=== PATIENT | female | born 1960 | race Caucasian/White ===

== ENCOUNTER 2016-11-26 07:17 | Inpatient (IN) | payer MEDICAID ==
[~2016-11-26] VITALS: Ht 152.4 cm; Wt 83.1 kg
[~2016-11-26 07:17] MED LIST: AMOX1TAB64 PO; HYDR-3240 PO; INSU100I28 SQ; INSU100V5 SQ-INSULIN; METF500T4 PO; SULF1TAB3 PO
[2016-11-26] MEDS ORDERED: FLUT12HF2 INH (07:52)
[2016-11-26] MEDS ORDERED: SPIR50TA2 PO (07:53)
[2016-11-26] MEDS ORDERED: SODIUM CHLORIDE FLUSH 10ML SYR IVF ONE ×2 (08:00→11:30)
[2016-11-26 08:34] LABS: BLOOD UREA NITROGEN 16 mg/dL (7-18)
[2016-11-26 08:40] LABS: ASPARTATE AMINO TRANSFERASE 80 U/L (15-37)
[2016-11-26 10:16] LABS: PATH.CAST-FLAG NOT PRESENT; SPERM-FLAG NOT PRESENT; SRC-FLAG NOT PRESENT; XTAL-FLAG NOT PRESENT; YLC-FLAG NOT PRESENT
[2016-11-26] MEDS ORDERED: FUROSEMIDE 40 MG/4 ML IV ONE (12:30)
[2016-11-26] MEDS ORDERED: morphine SULFATE 10 MG/ML, 1ML IVPush PRN (14:30)
[2016-11-26] MEDS ORDERED: ONDANSETRON 2MG/ML, 2ML IVPush PRN (14:30)
[2016-11-26] MEDS ORDERED: GUAIFENESIN/DM 200-20MG, 10ML UDC PO PRN (14:30)
[2016-11-26] MEDS ORDERED: HYDROcodone/APAP 5/325 TABLET PO PRN (14:30)
[2016-11-26] MEDS ORDERED: NICOTINE 21 MG/24 HR PATCH.TD24 TD SCH (14:30)
[2016-11-26] MEDS ORDERED: LORazepam 2 MG/ML, 1ML IVPush PRN (14:30)
[2016-11-26] MEDS ORDERED: FUROSEMIDE 40 MG/4 ML ONE (14:51)
[2016-11-26] MEDS ORDERED: LIDOCAINE 1%, 20ML ONE (15:36)
[2016-11-26] MEDS ORDERED: SODIUM BICARBONATE 4.2%, 5ML ONE (15:36)
[2016-11-26] MEDS ORDERED: OMNIPAQUE 350 MG/ML, 100ML BOTTLE ONE (16:30)
[2016-11-26 16:32] VITALS: BP 147/86
[2016-11-26] MEDS: HEPARIN 5,000 UNITS/ML, 1ML SQ SCH (17:18)
[2016-11-26] MEDS: INSULIN ASPART 100 UNITS/ML, PEN SQ-INSULIN SCH ×2 (17:18→21:38)
[2016-11-26 19:49] VITALS: BP 151/84
[2016-11-26] MEDS: SODIUM CHLORIDE FLUSH 3ML SYRINGE IVF SCH (21:00)
[2016-11-26] MEDS: FAMOTIDINE 20 MG TABLET PO SCH (21:37)
[2016-11-26] MEDS: LACTULOSE 10 GM/15 ML UDC PO SCH (21:38)
[2016-11-27 01:37] VITALS: BP 147/78
[2016-11-27] MEDS: HEPARIN 5,000 UNITS/ML, 1ML SQ SCH (05:28)
[2016-11-27 05:42] LABS: ASPARTATE AMINO TRANSFERASE 66 U/L (15-37); BLOOD UREA NITROGEN 17 mg/dL (7-18)
[2016-11-27] MEDS: INSULIN ASPART 100 UNITS/ML, PEN SQ-INSULIN SCH ×2 (07:00→11:00)
[2016-11-27] MEDS ORDERED: SPIRONOLACTONE 100 MG TABLET PO SCH (09:00)
[2016-11-27] MEDS: FAMOTIDINE 20 MG TABLET PO SCH (09:00)
[2016-11-27] MEDS ORDERED: FLUTICASONE/VILANTEROL 100-25MCG/INH INH SCH (09:00)
[2016-11-27] MEDS: LACTULOSE 10 GM/15 ML UDC PO SCH (09:00)
[2016-11-27] MEDS: SODIUM CHLORIDE FLUSH 3ML SYRINGE IVF SCH (09:00)
[2016-11-27] MEDS ORDERED: FUROSEMIDE 40 MG/4 ML IV SCH ×2 (09:00→09:31)
[2016-11-27 09:51] VITALS: BP 159/90
[2016-11-27] MEDS ORDERED: ALBUMIN HUMAN 25% 100 ML IV SCH (10:00)
[2016-11-27 12:32] VITALS: BP 155/96
== END 2016-11-27 13:10 | disposition left against medical advice (07) | DRG 947 ==
LOC: ED 09:20 → EDIP 13:23 → 3NE 16:30
DX: R18.8 Other ascites (principal); E43 Unspecified severe protein-calorie malnutrition; K74.60 Unspecified cirrhosis of liver; B18.2 Chronic viral hepatitis C; E11.9 Type 2 diabetes mellitus without complications; E77.8 Other disorders of glycoprotein metabolism; F15.90 Other stimulant use, unspecified, uncomplicated; F17.210 Nicotine dependence, cigarettes, uncomplicated; J44.9 Chronic obstructive pulmonary disease, unspecified; Z80.49 Family history of malignant neoplasm of other genital organs; Z83.3 Family history of diabetes mellitus; Z79.84 Long term (current) use of oral hypoglycemic drugs; Z79.899 Other long term (current) drug therapy; Z84.89 Family history of other specified conditions; Z68.35 Body mass index [BMI] 35.0-35.9, adult
CPT/HCPCS: 36415; 49083; 71010; 74177; 76700; 80053; 81001; 82105; 82140; 82378; 82962; 83036; 83690; 83735; 83880; 84100; 84443; 85025; 85379; 85610; 86301; 87086; 93005; 93306; 93970; 96374; J1644; J1815; J1940; J3490; Q9967

== ENCOUNTER 2016-12-06 19:22 | Emergency (ER) | payer MEDICAID ==
[~2016-12-06] VITALS: Ht 152.4 cm; Wt 82.2 kg
[~2016-12-06 19:22] MED LIST changes: +FLUT12HF2 INH; +SPIR50TA2 PO
[2016-12-06] MEDS ORDERED: LIDOCAINE 1%, 20ML ONE (20:12)
[2016-12-06] MEDS ORDERED: SODIUM CHLORIDE FLUSH 10ML SYR IVF ONE (20:30)
[2016-12-06] MEDS ORDERED: ALBUMIN HUMAN 25% 100 ML IV ONE (20:30)
[2016-12-06 21:35] LABS: ASPARTATE AMINO TRANSFERASE 48 U/L (15-37); BLOOD UREA NITROGEN 15 mg/dL (7-18)
[2016-12-06 23:39] VITALS: BP 132/59
== END 2016-12-06 23:43 | disposition home or self-care (01) ==
LOC: ED 21:26
DX: K74.60 Unspecified cirrhosis of liver (principal); K73.2 Chronic active hepatitis, not elsewhere classified; G89.29 Other chronic pain; R10.84 Generalized abdominal pain; E11.65 Type 2 diabetes mellitus with hyperglycemia; J44.9 Chronic obstructive pulmonary disease, unspecified; F17.210 Nicotine dependence, cigarettes, uncomplicated
CPT/HCPCS: 36415; 49083; 80053; 82042; 83615; 83690; 85025; 87070; 87205; 88112; 88305; 89051; 96365; 99285; J3490; P9047